=== PATIENT | male | born 1940 | race Caucasian/White ===

== ENCOUNTER 2019-07-14 10:13 | Inpatient (IN) ==
[2019-07-14] MEDS ORDERED: ASPIRIN PO ONE (10:22)
--- NOTE | 2019-07-14 10:35 | EKG Report ---
Test Performed on : 07/14/2019 10:25:20 AM Test Reason : SOB Blood Pressure : / mmHG Vent. Rate : 097 BPM Atrial Rate : 097 BPM P-R Int : 138 ms QRS Dur : 094 ms QT Int : 386 ms P-R-T Axes : 054 -03 065 degrees QTc Int : 490 ms Sinus rhythm. with premature atrial complexes. with aberrant conduction. Otherwise normal ECG When compared with ECG of 20-AUG-2017 11:33, Non-specific change in ST segment in Lateral leads QT has lengthened Unconfirmed Result
--- NOTE | 2019-07-14 11:05 | Diag Imaging Result Doc PS360 ---
EXAM: CHEST-2 VIEWS 07/14/2019 HISTORY: SOB TECHNIQUE: PA and lateral chest COMMENT: There is what appears to be a loculated right pleural effusion. This was not present on 08/20/2017. There is also apparent pleural fluid on the left. There is an old healing fracture of the posterior lateral left seventh rib. The heart size is slightly enlarged. There is atelectasis or pneumonia in the right lower and middle lobes which was not previously present. IMPRESSION: Bilateral pleural effusions. Right lower and middle lobe atelectasis versus pneumonia. Electronically signed by Sarbjit Rogers 07/14/2019 11:03 AM
--- NOTE | 2019-07-14 11:13 | PROVIDER DOCUMENTATION ---
This chart was entered by Olesya Fraga Scribe, acting as scribe for Adelaida Porter MD. HPI-Respiratory General - General Chief Complaint: Shortness of Breath Stated Complaint: DR OTT REFERRED Time Seen by Provider: 07/14/19 10:32 Source: patient, family () Allergies/Adverse Reactions: Patient Allergies Allergy/AdvReac Type Severity Reaction Status Date / Time No Known Allergies Allergy Verified 07/14/19 10:19 Home Medications: Home Medication List Medication Instructions Recorded Confirmed Last Taken Type ATORVAstatin [Lipitor] 20 mg PO DAILY 03/14/14 03/14/14 08/20/17 History Acetaminophen with Codeine 1 each PO Q6H PRN PRN #30 tablet 03/14/14 Unknown Rx [Tylenol with Codeine #3 Tablet] Albuterol Sulfate [Albuterol 8.5 gm IH DAILY 03/14/14 03/14/14 Unknown History Sulfate Hfa] Allopurinol 300 mg PO DAILY 03/14/14 03/14/14 08/20/17 History Baclofen 10 mg PO Q4-6H PRN PRN #30 tablet 03/14/14 Unknown Rx Budesonide [Pulmicort] 0.25 mg INH RTQ12H 03/14/14 03/14/14 Unknown History Diazepam 3 mg PO DAILY 03/14/14 03/14/14 08/20/17 History Finasteride 5 mg PO DAILY 03/14/14 03/14/14 08/20/17 History Gabapentin 300 mg PO DAILY 03/14/14 03/14/14 08/20/17 History Ipratropium 0.06% Nasal [place] 2 spray DREW TID 03/14/14 03/14/14 Unknown History [Atrovent 0.06% Nasal [place]] Lisinopril/Hydrochlorothiazide 20 mg PO DAILY 03/14/14 03/14/14 08/20/17 History [Lisinopril-Hctz 20-12.5 mg Tab] Metformin [Glucophage] 500 mg PO 4XDAY 03/14/14 03/14/14 08/20/17 History Omeprazole 20 mg PO DAILY 03/14/14 03/14/14 08/20/17 History Warfarin [Coumadin] 4.5 mg PO QHS 03/14/14 03/14/14 08/20/17 History Citalopram Hydrobromide 20 mg PO DAILY 08/20/17 08/20/17 08/20/17 History [Citalopram HBr] Tamsulosin HCl 0.4 mg PO BID 08/20/17 08/20/17 08/20/17 History - History of Present Illness-Resp Nature of Presenting Problem: 78 yowm presents to the ed with his from dr Ott office. pt had carotid sx 2 weeks prior and yesterday afternoon pt noticed sob with exertion, mild left anterior chest pain, fever/chills and dizziness. pt on exam is nontoxic in appearance and not currently sob. pt sts was sent to ed due to abnormal chest xray Quality of Pain: reports: aching Severity in ED: reports: mild Onset/Duration: reports: other (yesterday afternoon) Timing: reports: intermittent Exposure: reports: unknown cause Cough Quality/Degree: reports: mild, dry cough Episode Frequency: occasional episodes Current Respiratory Medication Therapy: Initiated see nurses note Modifying Factors: improves with: rest. worse with: exertion Associated Symptoms: reports: chest pain/soreness, cough, dizziness, fever/chills, shortness of breath Similar Symptoms Previously?: No Recently seen or treated by another doctor?: Yes (dr ott this am) Review of Systems - Adult - REVIEW OF SYSTEMS - ADULT Constitutional: reports: see HPI, chills, fever Eyes: reports: no symptoms reported Ears, Nose, Mouth & Throat: reports: no symptoms reported Cardiovascular: reports: see HPI, chest pain, edema (LLE). denies: palpitations, syncope Respiratory: reports: see HPI, cough, dyspnea on exertion, shortness of breath. denies: wheezing Gastrointestinal: denies: abdominal pain, diarrhea, nausea, vomiting Genitourinary: reports: no symptoms reported Musculoskeletal: reports: other (left calf pain). denies: back pain, neck pain Integumentary: reports: no symptoms reported Neurological: reports: see HPI, dizziness/vertigo. denies: headache/migraines, syncope Psychiatric: reports: no symptoms reported Endocrine: reports: no symptoms reported Hematologic/Lymphatic: reports: no symptoms reported Allergic/Immunologic: reports: no symptoms reported All Other Systems: Reviewed and Negative Past History - Adult - PAST MEDICAL HISTORY-ADULT Review of Records: reports: Old Records Reviewed, Nursing Assessment Review, Medications Reviewed, Social history reviewed & non-contributory. Major Childhood Illnesses: reports: denies history Cardiovascular: reports: blood clots (DVT in LLE), HTN, hyperlipidemia Respiratory: reports: asthma Gastrointestinal: reports: denies history Genitourinary: reports: denies history Musculoskeletal: reports: denies history Hand Dominance: Right Handed Neurological: reports: CVA Psychiatric: reports: denies history Endocrine/Immune: reports: Diabetes Diabetes Type: Type 2 Other Conditions: reports: denies history - PRIOR SURGERIES/PROCEDURES Surgical/Procedure History: reports: recent surgery (carotid sx 2 weeks prior), cholecystectomy, hernia repair - IMMUNIZATION STATUS Childhood Immunizations: See Nurse Assessment Flu Vaccine: See Nurse Assessment - FAMILY HISTORY Family History: reviewed, not pertinent - SOCIAL HISTORY Smoking: denies Substance Use: denies Living Situation: family Physical Exam-General - PHYSICAL EXAM-ADULT Initial Vital Signs Reviewed: Yes - CONSTITUTIONAL General Appearance: appears well, alert, no apparent distress, obese - EYES Eyes: PERRL/EOMI, pink conjunctivae - HEAD, EARS, NOSE, MOUTH & THROAT HENMT: moist mucous membranes, normal ENT inspection - NECK Neck: non-tender, full range of motion, supple, normal inspection - RESPIRATORY Respiratory: chest non-tender, lungs clear, normal breath sounds, other (94% on RA/sob with exertion only) - CARDIOVASCULAR Cardiovascular: normal peripheral pulses, regular rate, rhythm - CHEST (BREASTS) Chest/Breast: deferred - GASTROINTESTINAL (ABDOMEN) Abdominal Exam: normal bowel sounds, non tender, soft - LYMPHATIC Lymphatic: no adenopathy - MUSCULOSKELETAL Back Exam: normal inspection, no CVA tenderness, no vertebral tenderness Extremity: normal range of motion, normal capillary refill, pelvis stable, calf tenderness (left), swelling (chronic LLE swelling) - SKIN Integumentary: normal color, normal turgor, warm/dry - NEUROLOGIC Neurologic: grossly normal, no motor/sensory deficits - PSYCHIATRIC Psych/Mental Status: normal mood/affect, normal thought content, normal thought process, oriented x 3 Progress - PLAN OF CARE/RESULTS Progress/Plan/Lab Results: Vital Signs - 8 hr 07/14/19 10:16 Temperature 97.8 F Pulse Rate 95 H Respiratory Rate 20 Blood Pressure 165/80 O2 Sat by Pulse Oximetry 94 L Laboratory Results - last 24 hr 07/14/19 07/14/19 07/14/19 11:19 11:19 11:19 WBC 6.99 RBC 3.29 L Hgb 10.3 L Hct 33.7 L MCV 102.4 H MCH 31.3 H MCHC 30.6 L RDW Std Deviation 13.1 Plt Count 309 MPV 9.8 Immature Gran % (Auto) 0.4 Neut % (Auto) 70.3 Lymph % (Auto) 20.0 L [place] % (Auto) 7.9 Eos % (Auto) 1.1 Baso % (Auto) 0.3 Immature Gran # (Auto) 0.03 Neut # (Auto) 4.91 Lymph # (Auto) 1.40 [place] # (Auto) 0.55 Eos # (Auto) 0.08 Baso # (Auto) 0.02 PT 26.7 H INR 2.39 PTT (Actin FS) 46.9 H D-Dimer, Quantitative 0.57 H Sodium 142 Potassium 3.9 Chloride 104 Carbon Dioxide 27 Anion Gap 11 BUN 10 Creatinine 0.8 Estimated GFR/1.73 m2 > 60 BUN/Creatinine Ratio 13 Glucose 174 H Calculated Osmolality 286 Calcium 8.1 L Total Bilirubin 0.31 AST 17 ALT 15 Alkaline Phosphatase 63 Creatine Kinase 80 Troponin T Ohg-W-Ylqvubusyrt Pept Total Protein 5.9 L Albumin 3.5 Globulin 2.4 Albumin/Globulin Ratio 1.5 07/14/19 07/14/19 11:19 11:19 WBC RBC Hgb Hct MCV MCH MCHC RDW Std Deviation Plt Count MPV Immature Gran % (Auto) Neut % (Auto) Lymph % (Auto) [place] % (Auto) Eos % (Auto) Baso % (Auto) Immature Gran # (Auto) Neut # (Auto) Lymph # (Auto) [place] # (Auto) Eos # (Auto) Baso # (Auto) PT INR PTT (Actin FS) D-Dimer, Quantitative Sodium Potassium Chloride Carbon Dioxide Anion Gap BUN Creatinine Estimated GFR/1.73 m2 BUN/Creatinine Ratio Glucose Calculated Osmolality Calcium Total Bilirubin AST ALT Alkaline Phosphatase Creatine Kinase Troponin T 0.012 Bja-E-Dnvdbuopknv Pept 4349 H Total Protein Albumin Globulin Albumin/Globulin Ratio Orders Category Date Time Status Cardiac Monitoring DIRECTED Care 07/14/19 10:22 Active Oxygen Therapy- ED Nursing DIRECTED Care 07/14/19 10:22 Active Saline Loc NOW Care 07/14/19 10:22 Active CHEST-2 VIEWS [RAD] Stat Exams 07/14/19 10:22 Completed BLOOD CULTURE [BLDCUL] Stat Lab 07/14/19 11:43 Results CBC WITH ELECTRONIC DIFF [HEME] Stat Lab 07/14/19 11:19 Completed CK PROFILE [SP CHEM] Stat Lab 07/14/19 11:19 Completed COMPREHENSIVE METABOLIC PANEL [CHEM] Stat Lab 07/14/19 11:19 Completed D-DIMER [COAG] Stat Lab 07/14/19 11:19 Completed PRO B-NATRIURETIC PEPTIDE Stat Lab 07/14/19 11:19 Completed PROTIME WITH INR [COAG] Stat Lab 07/14/19 11:19 Completed PTT [COAG] Stat Lab 07/14/19 11:19 Completed TROPONIN T Stat Lab 07/14/19 11:19 Completed Albuterol 2.5MG/Ipratrop 0.5MG [Duoneb (A & A)] Med 07/14/19 12:42 Discontinued 3 ml INH NOW ONE Aspirin Med 07/14/19 10:22 Discontinued 325 mg PO NOW ONE Azithromycin 500 mg/Ns [Zithromax 500 mg/Ns] Med 07/14/19 12:42 Active 500 mg in 250 ml IV NOW CefTRIAXONE [Rocephin] 1 gm Med 07/14/19 12:42 Active 0.9% Sodium Chloride Inj [Ns] 50 ml IV NOW Furosemide [Lasix] Med 07/14/19 12:42 Discontinued 40 mg IV NOW ONE Aerosol Treatments Routine Oth 07/14/19 12:44 Completed Aerosol Treatments Stat Oth 07/14/19 12:44 Completed CP/SOB/Palp >45 yrs of Age Stat Oth 07/14/19 10:22 Ordered EKG [EKG] Stat Ther 07/14/19 10:22 Draft US [Venous U/S Left Leg] Stat Ther 07/14/19 12:45 Ordered Result Diagrams: 07/14/19 11:19 07/14/19 11:19 - REASSESSMENT Reassessment #1 Time Reassessed: 11:08 Status: unchanged (pt is in no distress resting in bed) - EKG 1 Time of EKG reading by physician:: 10:25 EKG Read and Signed by:: Adelaida Porter EKG Interpretation (*Must complete 3 of following elements*): Abnormal Rate: 97 Rhythm: sinus rhythm w/ premature atrial complexes w/aberrant conduction QRS: poor R wave progression, PVC's ST Wave: normal - XRAY 1 XRAY: Bilateral XRAY Study: Chest Impression: See EMR Report (EXAM: CHEST-2 VIEWS 07/14/2019 HISTORY: SOB TECHNIQUE: PA and lateral chest COMMENT: There is what appears to be a loculated right pleural effusion. This was not present on 08/20/2017. There is also apparent pleural fluid on the left. There is an old healing fracture of the posterior lateral left seventh rib. The heart size is slightly enlarged. There is atelectasis or pneumonia in the right lower and middle lobes which was not previously present. IMPRESSION: Bilateral pleural effusions. Right lower and m iddle lobe atelectasis versus pneumonia. Electronically signed by Sarbjit Rogers 07/14/2019 11:03 AM 07/14/19 1103 Interpreting Physician: Sarbjit Rogers MD Dictated Date/Time: 07/14/19 1102 cc: Adelaida Porter MD; Sasha Ott MD) - CONSULTS/PCP/HOSPITALIST Notification #1 *Consult/PCP/Hospitalist*: hospitalist Time Discussed: 12:52 Reason/Comments: spoke with zack Consult Disposition: Admit Departure - Departure Date of Disposition Decision: 07/14/19 Time of Disposition Decision: 12:44 DIAGNOSIS: Pneumonia Qualifiers: Pneumonia type: due to unspecified organism Laterality: unspecified laterality Lung location: unspecified part of lung Qualified Code(s): J18.9 - Pneumonia, unspecified organism CHF (congestive heart failure) Qualifiers: Heart failure type: unspecified Heart failure chronicity: unspecified Qualified Code(s): I50.9 - Heart failure, unspecified Dyspnea Qualifiers: Dyspnea type: unspecified Qualified Code(s): R06.00 - Dyspnea, unspecified Chest pain Qualifiers: Chest pain type: chest pain due to myocardial ischemia Ischemic chest pain type: unspecified angina pectoris type Qualified Code(s): I25.9 - Chronic ischemic heart disease, unspecified Disposition: ADMITTED INPATIENT 09 Certified Medical Emergency: Emergent Condition: Stable Referrals and Follow-Ups: Sasha Ott MD [Primary Care Provider] - - Critical Care Note This patient required my direct & personal management of CC.: No Attestation - Physician/ DANELLE Attestation Patient care was provided by Advanced Practice Provider:: No The physician spent face to face time with patient:: Yes Advanced Practice Provider documentation review:: Supervising physician onsite and consulted in the evaluation and care of this patient. The physician did have a face to face encounter with the patient. This chart was documented by the indicated scribe, (Olesya Fraga Scribe) and accurately reflects the services I performed and decisions made by me, Adelaida Porter MD, as attested by the provider's signature.
[2019-07-14 11:35] LABS: BASO# 0.02 X1000 (0.0-0.2); BASO% 0.3 % (0.0-0.8); EOS# 0.08 X1000 (0.0-0.7); EOS% 1.1 % (0.0-10.0); HEMATOCRIT 33.7 % (42.0-52.0); HEMOGLOBIN 10.3 g/dL (14.0-18.0); IMM GRAN# 0.03 X1000 (0.0-0.04); IMM GRAN% 0.4 % (0.0-0.5); MCH 31.3 PG (27-31); MCHC 30.6 g/dL (33-37); MCV 102.4 FL (81-99); MONO# 0.55 X1000 (0.11-0.59); MONO% 7.9 % (1.7-9.3); MPV 9.8 FL (7.4-10.4); NEUT# 4.91 X1000 (1.4-6.5); NEUT% 70.3 % (42.2-75.2); PLT 309 X1000 (130-400); RBC 3.29 XMIL (4.7-6.1); RDW 13.1 % (11.5-14.5); WBC 6.99 X1000 (4.8-10.8)
[2019-07-14 11:39] LABS: INR 2.39; PROTIME 26.7 Seconds (11.0-16.0)
[2019-07-14 11:40] LABS: PTT 46.9 Seconds (22.3-41.8)
[2019-07-14 11:54] LABS: AGAP 11; ALB/GLOB RATIO 1.5; ALBUMIN 3.5 g/dL (3.5-5.0); ALKALINE PHOSPHATASE 63 U/L (32-122); BUN 10 mg/dL (8-22); CALCIUM 8.1 mg/dL (8.8-10.2); CHLORIDE 104 mmol/L (98-107); CK PROFILE 80 U/L (24-204); COSMO 286; CREATININE 0.8 mg/dL (0.7-1.2); ESTIMATED GFR > 60; GLUCOSE 174 mg/dL (70-104); GOT 17 U/L (10-34); GPT 15 U/L (10-44); POTASSIUM 3.9 mmol/L (3.5-5.1); SODIUM 142 mmol/L (136-145); TCO2 27 mmol/L (25-35); TOTAL BILIRUBIN 0.31 mg/dL (0.20-1.00); TOTAL PROTEIN 5.9 g/dL (6.3-8.3)
[2019-07-14] MEDS ORDERED: ROCEPHIN 1 GM in NS 50 ML IV ONE (12:42)
[2019-07-14] MEDS ORDERED: ZITHROMAX 500 MG/NS 500 MG/250 ML IVPB IV ONE (12:42)
[2019-07-14] MEDS ORDERED: LASIX IV ONE (12:42)
[2019-07-14] MEDS ORDERED: DUONEB (A & A) INH ONE (12:42)
[2019-07-14] MEDS ORDERED: PRINIVIL PO ONE (13:25)
--- NOTE | 2019-07-14 15:48 | HISTORY AND PHYSICAL ---
HISTORY OF PRESENT ILLNESS: This is an 78-year-old, white male. He is followed by DR. Lincoln. He has been short of breath for a couple days. Had subjective fever and chills. Feeling a little weak and dizzy. Denies any cough or sore throat. Saw Dr. Lincoln and clinically concerned about pneumonia. Came here. Chest x-ray shows right lower lobe and right middle lobe pneumonia. He had a left carotid endarterectomy 2 weeks ago. PAST MEDICAL HISTORY: 1. History of CVA. I think there were mini-strokes that precipitated a left carotid endarterectomy, mainly right-sided symptomatology. 2. Pneumonia in the past. 3. Kidney stones. 4. Gastroesophageal reflux disease, hiatal hernia. 5. Hypertension. 6. Hypercholesterolemia. 7. Osteoarthritis. 8. Obstructive sleep apnea. 9. UTIs in the past. 10. Diabetes mellitus type 2. 11. Asthma, chronic bronchitis. 12. Peptic ulcer disease. 13. Restless legs syndrome. 14. Benign prostatic hypertrophy. 15. Gout. 16. Rheumatoid arthritis. 17. History of DVTs, on Coumadin. 18. Chronic back pain. 19. Depression. 20. Morbid obesity. 21. Peripheral artery disease, status post left carotid endarterectomy. PAST SURGICAL HISTORY: 1. Two weeks ago, left carotid endarterectomy. 2. Prostate surgery. 3. Hernia repair. 4. Tonsillectomy. ALLERGIES: No known drug allergies. FAMILY HISTORY: History of narcolepsy in his family, history of heart disease. He has a female relative that of heart disease before age 50. Not sure who that was. History of sleep walking in the past in some of his family members. REVIEW OF SYSTEMS: General: No weight gain or loss. Subjective fever in the last couple days and chills, just general weakness and malaise. HEENT: Does not report any change in visual or hearing acuity. Respiratory: No increased work of breathing until 2 days ago. Describes a little more dyspnea with exertion. Cardiovascular: No chest pain or tachy palpitations. Gastrointestinal and Genitourinary: No gross hematuria or dysuria. Musculoskeletal and Neurologic: No focal complaints. Endocrinologic and Hemologic: No significant history. PHYSICAL EXAMINATION: VITAL SIGNS: Temperature 97.8 degrees, pulse 95, blood pressure 165/80. HEENT: Pupils are equal and round. LUNGS: Clear in all lung alonzo. CARDIOVASCULAR EXAMINATION: Regular rhythm and rate without murmur or S3. WEIGHT AND HEIGHT: Weight 240 pounds, height 5 feet 9 inches. SKIN: Warm and dry. I did not appreciate any significant pedal edema. No skin rashes reported or appreciated. Oral and nasal mucosa without rash. NECK: Supple. No thyromegaly, no adenopathy appreciated. LABORATORY DATA: White count 6990, hematocrit is 33, hemoglobin 10, platelet count 309,000. Sodium 142, potassium 3.9, chloride 104, BUN 10, creatinine 0.8. AST was 17, ALT 15, alkaline phosphatase was 63. Prothrombin time was 28, INR 2.39, PTT was 46. D-dimer was 0.57. Chest x- ray, bilateral pleural effusions, right lower and middle lobe atelectasis, infiltrate consistent with pneumonia. ASSESSMENT AND PLAN: 1. Lobar pneumonia, community-acquired. Was recently in the hospital. That was two weeks ago so we will cover him with Rocephin. We will give him 1 g now on one every 24 hours. We will give him some DuoNebs 4 times a day. I am going to put him on some guaifenesin extended release 1200 mg by mouth twice a day and give him some intravenous fluids, supplemental oxygen. 2. History of left carotid endarterectomy two weeks ago. Prior to that, had some small, what he described as mini strokes. He has no neurologic deficits at this time. 3. History of kidney stones in the past. 4. Gastroesophageal reflux disease, hiatal hernia. 5. History of hypertension. 6. Hyperlipidemia. 7. Apparently, he has obstructive sleep apnea. 8. Diabetes mellitus type 2. We will check pattern of sugars. 9. History of asthma and chronic bronchitis. Aware. 10. History of peptic ulcer disease. We will have him on a proton pump inhibitor. 11. Restless legs syndrome. 12. Benign prostatic hypertrophy. 13. History of gout. 14. History of rheumatoid arthritis. 15. Apparently, he has had deep venous thrombosis in the past. I will try and go through his medication and get him back on his usual medicines. 16. He does have chronic lower back pain and so we will try and continue his pain medicine as well. 17. He also has benign prostatic hypertrophy and I believe he was on tamsulosin. 18. It looks like he was on Coumadin 4 mg at bedtime. cc: Alvarado Sheth MD
[2019-07-14] MEDS: DUONEB (A & A) INH SCH ×3 (16:32→23:18)
[2019-07-14] MEDS: HUMULIN R SUBQ SCH ×2 (17:44→21:51)
[2019-07-14] MEDS: NEURONTIN PO SCH (19:22)
[2019-07-14] MEDS ORDERED: LOPRESSOR IV ONE (19:32)
[2019-07-14] MEDS ORDERED: LANOXIN PO ONE (19:33)
[2019-07-14] MEDS: PULMICORT INH SCH (19:48)
--- NOTE | 2019-07-14 20:32 | EKG Report ---
Test Performed on : 07/14/2019 8:19:46 PM Test Reason : afib Blood Pressure : / mmHG Vent. Rate : 082 BPM Atrial Rate : 082 BPM P-R Int : 150 ms QRS Dur : 098 ms QT Int : 416 ms P-R-T Axes : 072 013 056 degrees QTc Int : 486 ms Sinus rhythm. with premature supraventricular complexes. and with occasional premature ventricular co mplexes. and fusion complexes Prolonged QT Abnormal ECG When compared with ECG of 14-JUL-2019 10:25, (Unconfirmed) fusion complexes are now present premature ventricular complexes. are now present Unconfirmed Result
[2019-07-14] MEDS: FLOMAX PO SCH (21:50)
[2019-07-14] MEDS: MUCINEX PO SCH (21:50)
[2019-07-14] MEDS: GLUCOPHAGE PO SCH (21:50)
[2019-07-14] MEDS: LIPITOR PO SCH (21:51)
[2019-07-14] MEDS: COUMADIN PO SCH (21:51)
--- NOTE | 2019-07-14 22:13 | Extremity Venous Study ---
PROCEDURE NAME: Venous U/S Left Leg - 07/14/2019 STUDY: Left lower extremity venous duplex study. REQUEST PHYSICIAN: Dr. Porter. READING PHYSICIAN: David Castaneda MD COMMUNITY BOARD MEMBER: Asael. INDICATION: Shortness of breath, left leg pain. FINDINGS: The deep and superficial veins of the left lower extremity were imaged throughout their course. They are compressible, patent and without thrombus. INTERPRETATION: No deep vein thrombosis or superficial vein thrombophlebitis of either lower extremity. There is reflux in the left mid superficial femoral vein for 2.3 seconds. There is deep vein reflux as well as greater saphenous vein or superficial vein reflux noted on the study. cc: David Castaneda MD
[2019-07-15] MEDS: DUONEB (A & A) INH SCH ×6 (03:26→23:21)
[2019-07-15] MEDS: HUMULIN R SUBQ SCH ×4 (06:20→21:39)
[2019-07-15] MEDS: PRILOSEC PO SCH (06:20)
[2019-07-15 07:27] LABS: INR 2.22; PROTIME 25.2 Seconds (11.0-16.0)
[2019-07-15 07:28] LABS: BASO# 0.02 X1000 (0.0-0.2); BASO% 0.3 % (0.0-0.8); EOS# 0.05 X1000 (0.0-0.7); EOS% 0.7 % (0.0-10.0); HEMOGLOBIN 10.2 g/dL (14.0-18.0); IMM GRAN# 0.02 X1000 (0.0-0.04); IMM GRAN% 0.3 % (0.0-0.5); LYMPH# 0.93 X1000 (1.2-3.4); LYMPH% 13.9 % (20.5-51.1); MCH 30.8 PG (27-31); MCV 102.7 FL (81-99); MONO# 0.43 X1000 (0.11-0.59); MONO% 6.4 % (1.7-9.3); MPV 10.1 FL (7.4-10.4); NEUT# 5.23 X1000 (1.4-6.5); NEUT% 78.4 % (42.2-75.2); PLT 291 X1000 (130-400); RBC 3.31 XMIL (4.7-6.1); RDW 13.1 % (11.5-14.5); WBC 6.68 X1000 (4.8-10.8)
[2019-07-15] MEDS: PULMICORT INH SCH ×2 (07:28→19:31)
[2019-07-15 07:36] LABS: HEMOGLOBIN A1C 7.1 % (4.8-6.0)
[2019-07-15 08:16] LABS: FREE T4 1.06 ng/dL (0.93-1.70); TSH 0.47 uIUmL (0.27-4.20)
[2019-07-15 08:20] LABS: AGAP 12; ALB/GLOB RATIO 1.3; ALBUMIN 3.2 g/dL (3.5-5.0); ALKALINE PHOSPHATASE 62 U/L (32-122); BUN 10 mg/dL (8-22); CALCIUM 8.1 mg/dL (8.8-10.2); CHLORIDE 104 mmol/L (98-107); COSMO 291; CREATININE 0.7 mg/dL (0.7-1.2); ESTIMATED GFR > 60; GLUCOSE 163 mg/dL (70-104); GOT 14 U/L (10-34); GPT 12 U/L (10-44); MAGNESIUM 1.3 mg/dL (1.5-2.7); POTASSIUM 4.1 mmol/L (3.5-5.1); SODIUM 145 mmol/L (136-145); TCO2 29 mmol/L (25-35); TOTAL BILIRUBIN 0.41 mg/dL (0.20-1.00); TOTAL PROTEIN 5.7 g/dL (6.3-8.3)
[2019-07-15] MEDS: ALDACTONE PO SCH (09:17)
[2019-07-15] MEDS: AMARYL PO SCH (09:17)
[2019-07-15] MEDS: CELEXA PO SCH (09:18)
[2019-07-15] MEDS: FLOMAX PO SCH ×2 (09:19→21:39)
[2019-07-15] MEDS: CULTURELLE PO SCH (09:19)
[2019-07-15] MEDS: CENTRUM SILVER PO SCH (09:19)
[2019-07-15] MEDS: GLUCOPHAGE PO SCH ×4 (09:19→21:39)
[2019-07-15] MEDS: MUCINEX PO SCH ×2 (09:20→21:39)
[2019-07-15] MEDS: NEURONTIN PO SCH ×3 (09:20→17:36)
[2019-07-15] MEDS: MAG-OX PO SCH (09:20)
[2019-07-15] MEDS: LASIX PO SCH (09:20)
[2019-07-15] MEDS: PROSCAR PO SCH (09:21)
[2019-07-15] MEDS: ROCEPHIN 1 GM in NS 50 ML IV SCH (09:21)
[2019-07-15] MEDS: ZYLOPRIM PO SCH (09:23)
[2019-07-15] MEDS: VALIUM PO SCH (09:30)
--- NOTE | 2019-07-15 10:03 | PROGRESS NOTE ---
DATE: 07/15/2019 SUBJECTIVE: Mr. Munoz says he is feeling better and monitors suggested he was going into atrial flutter at times. He did have question about his pleural fluid. Apparently a couple years ago he had to have pleural fluid drained and he is not sure why he is getting the fluid collection. OBJECTIVE: Vital signs: Temperature 98.2 degrees, pulse 78, respirations 19, blood pressure 142/79. HEENT: Pupils are equal and round. Lungs: Clear in all lung alonzo. Cardiovascular: Regular rhythm and rate without murmur or S3. Abdomen: Soft. Skin is warm and dry. IMAGING: He had noninvasive studies done of the left leg. There is no deep venous thrombosis or superficial vein thrombosis in either extremity. ASSESSMENT: 1. Lobar pneumonia, middle and right lobe. Continue his Rocephin 1 g q.24 hours, his DuoNeb and supplementary oxygen. I have him on guaifenesin. 2. Left carotid endarterectomy 2 weeks ago. Seems to be healing well. 3. History of kidney stones in the past. 4. Gastroesophageal reflux. 5. History of hypertension. 6. Hyperlipidemia. 7. Apparently chronic obstructive pulmonary disease. 8. Diabetes mellitus type 2. Continue to follow pattern sugars. 9. History of asthma, chronic bronchitis. 10. History of peptic ulcer disease. 11. Restless legs syndrome. 12. History of gout. 13. History of rheumatoid arthritis. PLAN: His x-ray yesterday, bilateral pleural effusions, right lower and middle lobe atelectasis versus pneumonia. I am going to ask Pulmonary to help us with evaluation of these pleural effusions and we will check the EKG this morning. EKG shows sinus rhythm, but there were reports of some atrial flutter and may be worth getting an echocardiogram as well just to look at left ventricular function. I see where he has had a myocardial perfusion scan in February 2018, he had a fixed defect in the inferior lateral wall suggestive infarct or scar. This is a fixed defect in the inferior apical wall and there is reversible perfusion defect in the distal anterior septal wall suggestive of of infarct ischemia. Left ventricular ejection fraction was 43%. I will ask Cardiology to see as well while he is here cc: MD KRISTIN Perry
--- NOTE | 2019-07-15 10:15 | Diag Imaging Result Doc PS360 ---
EXAM: CHEST-2 VIEWS 07/15/2019 HISTORY: Pneumonia TECHNIQUE: PA and lateral chest COMMENT: There is pleural thickening and/or loculated effusion on the right. There is ill-defined opacity in the lung bases particularly on the right. This has not changed since 07/14/2019. These findings were not present on 08/20/2017. IMPRESSION: Pleural effusions and/or pleural thickening. Pulmonary edema and/or pneumonia. Electronically signed by Sarbjit Rogers 07/15/2019 10:13 AM
--- NOTE | 2019-07-15 13:43 | ECHO REPORT ---
ORDER DATE: 07/14/2019 2D ECHOCARDIOGRAM: ECHOCARDIOGRAPHIC MEASUREMENTS: 1. Interventricular septum 1.2. 2. Left ventricular posterior wall 1.1. 3. Diastolic diameter 5.0. 4. Left atrium 5.6. 5. Aorta 4. FINDINGS: 1. Pulmonic valve was normal. 2. Aortic valve leaflets were calcified, trileaflet. Technically suboptimal study. Poor acoustic window. 3. Mitral valve was normal. 4. There is moderate mitral annular calcification. 5. There is left atrial enlargement. 6. Atrial fibrillation noted. 7. There is mild mitral regurgitation. 8. Mild tricuspid regurgitation. 9. Peak velocity across the tricuspid valve was 3.4 m/sec. 10. Pulmonary artery systolic pressure 57 mmHg. 11. Peak velocity across the aortic valve was 4 m/sec with a maximum gradient of 66 mmHg, mean gradient of 45 mmHg, aortic valve area of 1.2 cm2. There is moderate to severe aortic stenosis. There is no aortic regurgitation. 12. Optison was used to assess left ventricular systolic function. Normal left ventricular cavity size. 13. Estimated ejection fraction of 60%. 14. There is no pericardial effusion or obvious intracardiac mass or thrombus. cc: MD Aspen Garcia CRNP
[2019-07-15] MEDS: LASIX IV SCH ×2 (13:59→21:40)
[2019-07-15] MEDS ORDERED: MAGNESIUM SULFATE 4 GM/S.W.I. 4 GM/100 ML IVPB IV ONE (14:04)
[2019-07-15] MEDS: LOPRESSOR PO SCH (14:04)
[2019-07-15] MEDS: FLONASE NAS SCH (14:05)
--- NOTE | 2019-07-15 14:44 | CARDIOLOGY CONSULTATION ---
DATE: 07/15/2019 REASON FOR CONSULTATION: The patient is admitted with shortness of breath and pneumonia. HISTORY OF PRESENT ILLNESS: Mr. Munoz is an 78-year-old gentleman who underwent carotid endarterectomy at [facility] on 06/29/2019 and was discharged home on 07/01/2019, where he was admitted for left carotid endarterectomy. The patient states that in the hospital when he was there he also had some nausea and vomiting. He came home, subsequently he noticed a few days of shortness of breath without any subjective chills, may have had some low-grade temperature. He felt weak and has sudden onset shortness of breath. He came to the emergency room, chest x-ray revealed right lower lobe and middle lobe pneumonia with effusion. The patient was admitted and started on antibiotics. From a cardiac standpoint, denies chest pain. There is no history of any palpitations or syncope. PAST MEDICAL HISTORY: 1. The patient has moderate aortic stenosis, left heart catheterization in 2014 and 2017. The one in 2018 revealed mild pulmonary arterial hypertension with normal left ventricular end- diastolic pressure, essentially normal coronary arteries, no significant blockages other than minimal luminal irregularities. The aortic valve area was 1.4 cm2, consistent with moderate aortic stenosis, with preserved left ventricular systolic function, ejection fraction of 55%. 2. History of asthma. 3. History of shortness of breath. Underwent paracentesis on 03/19/2018 at [place], at that time he had right middle and lower lobe nodular opacities, and underwent thoracentesis. 4. History of hypertension. 5. 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 HOME MEDICATIONS: Include 1. Allopurinol 300 mg a day. 2. Atorvastatin 20. 3. Celexa 20. 4. Diazepam 2 mg at bedtime. 5. Finasteride 5 mg. 6. Fluticasone. 7. Gabapentin. 8. Glimepiride 1 mg. 9. Lisinopril 20 mg. 10. Metformin 1000 mg b.i.d. 11. Multivitamins. 12. Omeprazole 20. 13. Spironolactone 25. 14. Coumadin as directed. ALLERGIES: He is not known to be allergic to any medication. CURRENT MEDICATIONS: In the hospital his current medications also include ceftriaxone, and Lasix was given intravenously. He also takes Amaryl 1 mg in addition to subcu insulin as needed. PHYSICAL EXAMINATION: Blood pressure was 142/79, ejection systolic murmur heard.Respiratory: Had dullness at the base with inspiratory crepitations on the right side. Abdomen: Soft, nontender. There was no guarding or rigidity. Bowel sounds were heard. Central Nervous System: Alert and was moving all 4 extremities. LABORATORY DATA: Revealed a sodium of 147, potassium 4.1, BUN 10, creatinine 0.7, glucose 163. ProBNP elevated at 5000, magnesium 1.3, TSH 0.47. CBC: WBC was 6.68, hemoglobin 10.2,hematocrit 34, platelet count of 291,000. Coagulation: INR 2.39 and 2.22. ASSESSMENT AND PLAN: 1. Mr. Beau Munoz is an 78-year-old gentleman with a history of insignificant coronary artery disease, moderate aortic stenosis, has had CVA in the past, on anticoagulation therapy for recurrent DVTs, underwent carotid endarterectomy in June of 2019. While in the hospital the patient states that he had significant nausea and projectile vomiting. He was discharged home, is admitted with sudden onset of increasing shortness of breath. Chest x-ray is suggestive of pneumonia with pleural effusion. From a cardiac standpoint he has gone into atrial fibrillation, and this is new and we will put him on Lopressor 50 mg a day. 2. He is also anticoagulated given his recurrent DVT. His INR is therapeutic. 3. His echocardiogram revealed preserved left ventricular systolic function with moderate to severe aortic stenosis, the last cardiac catheterization in 2018 revealed aortic valve area of 1.8 cm2, with moderate aortic stenosis. 4. As far as his pneumonia is concerned, in the past he has had thoracentesis in 2018, with lower lobe, right and middle lobe ground-glass opacities noted. We will get a CT scan of his chest to evaluate the lung as well as the effusion. Pulmonology has been consulted. He has been given Lasix. Thank you for the consult. We will follow hospital course. cc: Jarod Ramirez MD
--- NOTE | 2019-07-15 15:46 | Diag Imaging Result Doc PS360 ---
CT THORAX W/WO CONTRAST - 07/15/2019 INDICATION: Dyspnea, pneumonia, effusions COMPARISON: Chest x-ray earlier 07/15/2019 FINDINGS: On the noncontrast exam, there is some density within the lung at the posterior lateral lung bases bilaterally. This likely indicates calcified pleural plaques. On the contrast-enhanced exam, there is cardiomegaly. There are significant coarse densities of the aortic valve. This suggests significant vascular calcification. This may indicate aortic stenosis. There is also scattered focal calcified coronary artery disease. No adenopathy. Upper abdominal images are unremarkable. There is a small left pleural effusion. There is some multifocal atelectasis/fibrosis in the lung bases. There are also patchy infiltrates in the right upper lobe compatible with pneumonia. There is vertebroplasty cement in the lower thoracic spine. No acute bony lesions. IMPRESSION: 1. Cardiomegaly. Bibasilar infiltrates that are nonspecific, suggesting scarring. 2. Patchy infiltrates in the right upper lobe concerning for pneumonia. 3. Trace left pleural effusion. This exam was performed using automated exposure control, adjustment of mA or kV according to patient size, and/or use of iterative reconstruction technique Electronically signed by Fan Hercules 07/15/2019 3:44 PM
[2019-07-15] MEDS: COUMADIN PO SCH (21:38)
[2019-07-15] MEDS: LIPITOR PO SCH (21:39)
--- NOTE | 2019-07-16 01:04 | PULMONOLOGY CONSULTATION ---
DATE: 07/15/2019 REASON FOR CONSULTATION: Evaluate and treat with pleural effusions. HISTORY OF PRESENT ILLNESS: Mr. Munoz is an 78-year-old white male, never smoker, who recently underwent a carotid endarterectomy for what he describes as an 80% stenosis of the left carotid artery. The patient has had a history of minor strokes with residual numbness in the left leg. The patient has developed increased shortness of breath with some cough and subjective fevers over the last several days. He was evaluated by Dr. Lincoln and chest x-ray suggested right middle and right lower lobectomy, which was not present 2 years ago. The patient does report that 1 year ago he was admitted to [facility] and had fluid drawn off his right lung. He also had a cardiac catheterization at that time and reports he did not have significant blockages. This information has been requested. PAST MEDICAL HISTORY: 1. History of prior pleural effusion as per above. 2. Hypertension. 3. History of stroke with minor residual infiltrates. 4. Gastroesophageal reflux with mild hiatal hernia by report. 5. Recurrent deep vein thrombosis, on anticoagulation. 6. Chronic back pain. 7. History of rheumatoid arthritis. 8. BPH. 9. Left leg syndrome. 10. Chronic bronchitis. 11. History of UTIs. 12. Obstructive sleep apnea, on CPAP device. 13. Dyslipidemia. 14. Nephrolithiasis. 15. Prior history of pneumonia. SOCIAL HISTORY: The patient denies prior tobacco use. No significant alcohol use. Work history was not obtained but will be obtained at the next visit. FAMILY HISTORY: Positive for heart disease, narcolepsy. REVIEW OF SYSTEMS: Notable for cough, fevers, chills, shortness of breath, increased lower extremity edema. PHYSICAL EXAMINATION: General: Reveals a well-developed, well-nourished male who appears younger than his stated age, in no acute distress. Vital signs: BP 142/79, heart rate 78, respiratory rate 19, oxygen saturation 94% on 3 L per nasal cannula. HEENT: Pupils are equal and reactive. Oropharynx is clear. Neck: Supple. Chest: Reveals decreased breath sounds both lung bases with bilateral crackles. Cardiac: S1, S2. Slightly irregular rhythm. Abdomen: Soft. Extremities: Reveal 1+ ankle edema. LABORATORIES: Chest x-ray as per HPI. ProBNP is elevated at 5001. IMPRESSION: An 78-year-old with prior history of pleural effusion status post thoracentesis, history of rheumatoid arthritis, recent carotid endarterectomy, who presents with subjective fevers, pleural effusion, pneumonia, increased peripheral edema, and hypoxemic respiratory failure. PLAN: 1. Attempt diuresis today with followup chest x-ray tomorrow. 2. Continue current antibiotics pending blood culture results. 3. Obtain previous workup from [facility] concerning thoracentesis and its results. 4. Review CT scan ordered by Cardiology. cc: Lui Bell MD
[2019-07-16] MEDS: DUONEB (A & A) INH SCH ×6 (03:33→23:08)
[2019-07-16] MEDS: HUMULIN R SUBQ SCH ×4 (06:32→20:18)
[2019-07-16] MEDS: PRILOSEC PO SCH (06:33)
[2019-07-16 06:59] LABS: BASO# 0.01 X1000 (0.0-0.2); BASO% 0.1 % (0.0-0.8); EOS# 0.16 X1000 (0.0-0.7); EOS% 2.3 % (0.0-10.0); HEMATOCRIT 35.6 % (42.0-52.0); IMM GRAN# 0.03 X1000 (0.0-0.04); IMM GRAN% 0.4 % (0.0-0.5); LYMPH# 1.55 X1000 (1.2-3.4); MCH 31.8 PG (27-31); MCHC 30.9 g/dL (33-37); MCV 102.9 FL (81-99); MONO# 0.67 X1000 (0.11-0.59); MONO% 9.5 % (1.7-9.3); NEUT# 4.63 X1000 (1.4-6.5); NEUT% 65.7 % (42.2-75.2); PLT 290 X1000 (130-400); RBC 3.46 XMIL (4.7-6.1); RDW 13.3 % (11.5-14.5); WBC 7.05 X1000 (4.8-10.8)
[2019-07-16 07:09] LABS: INR 2.03; PROTIME 23.5 Seconds (11.0-16.0)
[2019-07-16 07:23] LABS: AGAP 14; ALBUMIN 3.1 g/dL (3.5-5.0); ALKALINE PHOSPHATASE 65 U/L (32-122); BUN 16 mg/dL (8-22); CALCIUM 8.2 mg/dL (8.8-10.2); CHLORIDE 98 mmol/L (98-107); COSMO 281; CREATININE 0.9 mg/dL (0.7-1.2); ESTIMATED GFR > 60; GLUCOSE 132 mg/dL (70-104); GOT 18 U/L (10-34); GPT 12 U/L (10-44); MAGNESIUM 1.7 mg/dL (1.5-2.7); SODIUM 139 mmol/L (136-145); TCO2 27 mmol/L (25-35); TOTAL BILIRUBIN 0.38 mg/dL (0.20-1.00); TOTAL PROTEIN 6.2 g/dL (6.3-8.3)
[2019-07-16] MEDS: PULMICORT INH SCH ×2 (07:58→19:30)
[2019-07-16] MEDS: FLONASE NAS SCH (08:24)
[2019-07-16] MEDS: ROCEPHIN 1 GM in NS 50 ML IV SCH (08:25)
[2019-07-16] MEDS: CENTRUM SILVER PO SCH (08:26)
[2019-07-16] MEDS: MUCINEX PO SCH ×2 (08:26→20:18)
[2019-07-16] MEDS: PROSCAR PO SCH (08:26)
[2019-07-16] MEDS: CULTURELLE PO SCH (08:26)
[2019-07-16] MEDS: ALDACTONE PO SCH (08:26)
[2019-07-16] MEDS: LASIX PO SCH (08:26)
[2019-07-16] MEDS: CELEXA PO SCH (08:26)
[2019-07-16] MEDS: MAG-OX PO SCH (08:26)
[2019-07-16] MEDS: NEURONTIN PO SCH ×3 (08:26→17:12)
[2019-07-16] MEDS: AMARYL PO SCH (08:26)
[2019-07-16] MEDS: GLUCOPHAGE PO SCH ×4 (08:27→20:18)
[2019-07-16] MEDS: ZYLOPRIM PO SCH (08:27)
[2019-07-16] MEDS: LOPRESSOR PO SCH (08:27)
[2019-07-16] MEDS: FLOMAX PO SCH ×2 (08:27→20:18)
[2019-07-16] MEDS: VALIUM PO SCH (08:33)
--- NOTE | 2019-07-16 09:33 | Diag Imaging Result Doc PS360 ---
EXAM: CHEST-2 VIEWS HISTORY: abnormal exam TECHNIQUE: Two views COMPARISON: 07/15/2019 FINDINGS: Poor inspiratory effort. The heart is mildly enlarged. There are small pleural effusions with basilar atelectasis. Right upper lobe infiltrates are less pronounced. IMPRESSION: Mild interval improvement. Electronically signed by Ralph Warren 07/16/2019 9:30 AM
--- NOTE | 2019-07-16 12:54 | PROGRESS NOTE ---
DATE: 07/16/2019 Mr Munoz is breathing better. He is feeling better. Remains afebrile. Sitting up, just finished his breakfast. OBJECTIVE: Vital Signs: Temp 98.2 degrees, pulse 60, respirations 18, blood pressure 100/47. HEENT: Pupils are equal and round. Lungs: Are clear in all lung alonzo. Cardiovascular: Regular rhythm and rate without murmur or S3. Abdomen: Is soft. Skin: Warm and dry. Blood sugar 103, 162, 208. ASSESSMENT AND PLAN: 1. History of insignificant coronary artery disease, moderate aortic stenosis. He has had a CVA in the past, on anticoagulation for history of DVT, underwent carotid endarterectomy in June 2019, just this last month. He had sudden increase in shortness of breath. Chest x- ray suggestive of pneumonia and pleural effusion. 2. Continue anticoagulation with history of DVT. INR therapeutic. 3. Echocardiogram revealed preserved left ventricular function. Last heart catheterization 2017 revealed aortic valve area of 1.8 cm2, moderate aortic stenosis. 4. Continue present antibiotics. He had a thoracentesis in 2018 with lower lobe right middle lobe ground-glass opacities noted. CT scan of the chest is planned to evaluate the fusion. He continues present Lasix. 5. There was a report that he was going into atrial flutter. I do not see any strips to confirm that. cc: Alvarado Sheth MD
[2019-07-16] MEDS ORDERED: MILK OF MAGNESIA PO PRN (13:30)
[2019-07-16] MEDS ORDERED: DULCOLAX PO PRN (13:30)
[2019-07-16] MEDS: MIRALAX PO SCH (13:49)
--- NOTE | 2019-07-16 17:37 | EKG Report ---
Test Performed on : 07/16/2019 06:44:22 AM Test Reason : afib Blood Pressure : / mmHG Vent. Rate : 089 BPM Atrial Rate : 089 BPM P-R Int : 178 ms QRS Dur : 100 ms QT Int : 440 ms P-R-T Axes : 081 012 059 degrees QTc Int : 535 ms Sinus rhythm. with premature atrial complexes. Prolonged QT Abnormal ECG When compared with ECG of 14-JUL-2019 20:19, (Unconfirmed) fusion complexes are no longer present premature ventricular complexes. are no longer present Unconfirmed Result
[2019-07-16] MEDS: COUMADIN PO SCH (20:18)
[2019-07-16] MEDS: LIPITOR PO SCH (20:18)
--- NOTE | 2019-07-16 20:23 | CARDIOLOGY PROGRESS NOTE ---
DATE: 07/16/2019 SUBJECTIVE: Patient denies shortness of breath or chest discomfort. He reports feeling progressively better. He has spontaneously converted back to sinus rhythm. OBJECTIVE: Blood pressure 109/64, heart rate 62, with ECG monitor showing sinus rhythm. Oxygen saturation 94% on room air. There is no significant jugular venous distention.Chest: Clear to auscultation bilaterally. Cardiac: Regular rate and rhythm without appreciable murmur or gallop. There is mild pedal edema. LABORATORY DATA: Includes a white blood cell count of 7.05, hematocrit 35.6, hemoglobin 11.0, platelet count 290,000. Sodium 139, potassium 4.0, chloride 98, carbon dioxide 27, BUN 16, creatinine 0.9, glucose 132. IMPRESSION: 1. Recent atrial fibrillation in the setting of acute noncardiac illness. Patient has spontaneously converted back to sinus rhythm. 2. Pneumonia. 3. Previous deep vein thrombosis. Patient continues on anticoagulation. 4. Atherosclerotic coronary disease, mild. 5. Moderate aortic stenosis. 6. History of previous cerebrovascular accident. RECOMMENDATIONS: 1. Continue metoprolol for rate control should he go back in to atrial fibrillation. 2. Patient already anticoagulated given recurrent DVT. Recent INR therapeutic. cc: Blayne Main MD
--- NOTE | 2019-07-16 21:57 | PULMONOLOGY PROGRESS NOTE ---
DATE: 07/16/2019 SUBJECTIVE: The patient is awake, alert, and conversant. He reports he feels better. Intake, output not able to assess because urine output has not been measured. OBJECTIVE: Vital Signs: BP 100/47, heart rate 60, respiratory rate 18, oxygen saturation 97%. HEENT: Pupils are equal and reactive. Oropharynx appears clear. Neck: Supple. Chest: Reveals diminished breath sounds both lung bases. Cardiac: S1-S2. Abdomen: Obese and soft. Extremities: Reveal slight decreased peripheral edema. LABORATORIES: CT scan of the thorax 07/15/2019 is reviewed. Patient has some areas of consolidation in both lung bases with increased densities which may be calcified pleural plaques but the patient denies asbestos. He denies ingestion of calcium carbonate. He denies ingestion of mineral oil. He denies asbestos or occupational exposures. He denies history of tuberculosis exposure. The CT scan also reveals cardiomegaly with trace left-sided pleural effusion. IMPRESSION: 78-year-old with 1. Acute hypoxemic respiratory failure. 2. Small left-sided pleural effusion. 3. History of rheumatoid arthritis. 4. Status post carotid endarterectomy. 5. Peripheral edema. 6. Acute hypoxemic respiratory failure. 7. Status post thoracentesis at [facility]. The records still are not yet available for review. PLAN: 1. Increase oral Lasix dose but no additional IV dosing today. 2. Continue current antibiotic regimen. 3. Await [facility] records for review of prior thoracentesis. cc: Lui Bell MD
[2019-07-17] MEDS: DUONEB (A & A) INH SCH ×5 (03:28→20:02)
[2019-07-17] MEDS: HUMULIN R SUBQ SCH ×4 (06:12→20:37)
[2019-07-17] MEDS: PRILOSEC PO SCH (06:17)
[2019-07-17 07:28] LABS: BASO# 0.02 X1000 (0.0-0.2); BASO% 0.3 % (0.0-0.8); EOS# 0.13 X1000 (0.0-0.7); HEMATOCRIT 34.4 % (42.0-52.0); HEMOGLOBIN 10.5 g/dL (14.0-18.0); IMM GRAN# 0.03 X1000 (0.0-0.04); IMM GRAN% 0.5 % (0.0-0.5); LYMPH# 1.33 X1000 (1.2-3.4); LYMPH% 20.3 % (20.5-51.1); MCH 31.4 PG (27-31); MCHC 30.5 g/dL (33-37); MONO# 0.44 X1000 (0.11-0.59); MONO% 6.7 % (1.7-9.3); NEUT% 70.2 % (42.2-75.2); PLT 294 X1000 (130-400); RBC 3.34 XMIL (4.7-6.1); RDW 13.3 % (11.5-14.5); WBC 6.55 X1000 (4.8-10.8)
[2019-07-17 07:29] LABS: INR 1.91; PROTIME 22.3 Seconds (11.0-16.0)
[2019-07-17] MEDS: PULMICORT INH SCH ×2 (07:44→20:02)
[2019-07-17 07:48] LABS: ESTIMATED GFR > 60
[2019-07-17] MEDS: MIRALAX PO SCH (08:26)
[2019-07-17] MEDS: NEURONTIN PO SCH ×3 (08:27→16:01)
[2019-07-17] MEDS: ROCEPHIN 1 GM in NS 50 ML IV SCH (08:27)
[2019-07-17] MEDS: ZYLOPRIM PO SCH (08:28)
[2019-07-17] MEDS: ALDACTONE PO SCH (08:28)
[2019-07-17] MEDS: LASIX PO SCH (08:28)
[2019-07-17] MEDS: CULTURELLE PO SCH (08:28)
[2019-07-17] MEDS: MUCINEX PO SCH ×2 (08:28→20:35)
[2019-07-17] MEDS: GLUCOPHAGE PO SCH ×4 (08:28→20:35)
[2019-07-17] MEDS: CELEXA PO SCH (08:28)
[2019-07-17] MEDS: MAG-OX PO SCH (08:29)
[2019-07-17] MEDS: CENTRUM SILVER PO SCH (08:29)
[2019-07-17] MEDS: AMARYL PO SCH (08:29)
[2019-07-17] MEDS: FLOMAX PO SCH ×2 (08:29→20:35)
[2019-07-17] MEDS: PROSCAR PO SCH (08:29)
[2019-07-17] MEDS: LOPRESSOR PO SCH (08:29)
[2019-07-17] MEDS: FLONASE NAS SCH (08:30)
[2019-07-17 08:46] LABS: AGAP 12; ALB/GLOB RATIO 1.2; ALBUMIN 3.3 g/dL (3.5-5.0); ALKALINE PHOSPHATASE 60 U/L (32-122); BUN 21 mg/dL (8-22); CALCIUM 9.1 mg/dL (8.8-10.2); CHLORIDE 98 mmol/L (98-107); COSMO 281; GLUCOSE 144 mg/dL (70-104); GOT 17 U/L (10-34); GPT 12 U/L (10-44); MAGNESIUM 1.9 mg/dL (1.5-2.7); POTASSIUM 4.3 mmol/L (3.5-5.1); SODIUM 138 mmol/L (136-145); TCO2 28 mmol/L (25-35); TOTAL BILIRUBIN 0.33 mg/dL (0.20-1.00); TOTAL PROTEIN 6.1 g/dL (6.3-8.3)
[2019-07-17] MEDS: VALIUM PO SCH (08:46)
--- NOTE | 2019-07-17 13:18 | PROGRESS NOTE ---
DATE: 07/17/2019 SUBJECTIVE: Mr. Munoz is feeling better, breathing better. OBJECTIVE: Vital Signs: He remains afebrile, temperature 97.5 degrees, pulse 111, respirations 18, blood pressure 134/60. HEENT: Pupils are equal and round. Lungs: Clear in all lung alonzo. Cardiovascular: Regular rhythm and rate without murmur or S3. He is feeling better. ASSESSMENT AND PLAN: Acute hypoxemic respiratory failure, small left-sided pleural effusion, history of rheumatic arthritis, status post carotid endarterectomy a couple weeks ago, some peripheral edema. He is status post thoracentesis in [facility]. I think this was a couple years ago, so encouraged him to wear his continuous positive airway pressure, and I encouraged some weight reduction. Continue present antibiotic coverage. Dr. Bell is awaiting results from [facility] and thoracentesis. REVIEW OF ORDERS: I do not see any change. I suspect he will be able to go home tomorrow. He is on his Coumadin 4 mg a day, and his ProTime is 22, which is therapeutic. His INR is 1.9. cc: Alvarado Sheth MD
[2019-07-17] MEDS: TYLENOL PO PRN (14:15)
[2019-07-17] MEDS: LIPITOR PO SCH (20:35)
[2019-07-17] MEDS: COUMADIN PO SCH (20:35)
[2019-07-18] MEDS: DUONEB (A & A) INH SCH ×5 (00:07→15:46)
[2019-07-18] MEDS: HUMULIN R SUBQ SCH ×3 (06:13→16:06)
[2019-07-18] MEDS: PRILOSEC PO SCH (06:28)
[2019-07-18] MEDS: PULMICORT INH SCH (07:39)
[2019-07-18 07:42] LABS: BASO# 0.02 X1000 (0.0-0.2); BASO% 0.3 % (0.0-0.8); EOS# 0.15 X1000 (0.0-0.7); EOS% 2.3 % (0.0-10.0); HEMATOCRIT 34.9 % (42.0-52.0); HEMOGLOBIN 10.6 g/dL (14.0-18.0); IMM GRAN# 0.02 X1000 (0.0-0.04); IMM GRAN% 0.3 % (0.0-0.5); LYMPH# 1.14 X1000 (1.2-3.4); LYMPH% 17.8 % (20.5-51.1); MCH 31.2 PG (27-31); MCHC 30.4 g/dL (33-37); MCV 102.6 FL (81-99); MONO# 0.42 X1000 (0.11-0.59); MONO% 6.5 % (1.7-9.3); NEUT# 4.67 X1000 (1.4-6.5); NEUT% 72.8 % (42.2-75.2); PLT 295 X1000 (130-400); RDW 13.2 % (11.5-14.5); WBC 6.42 X1000 (4.8-10.8)
[2019-07-18] MEDS ORDERED: NS 50 ML ONE (07:46)
[2019-07-18 07:54] LABS: INR 1.76; PROTIME 20.9 Seconds (11.0-16.0)
[2019-07-18 08:30] LABS: AGAP 12; ALB/GLOB RATIO 1.3; ALBUMIN 3.5 g/dL (3.5-5.0); ALKALINE PHOSPHATASE 61 U/L (32-122); BUN 20 mg/dL (8-22); CALCIUM 8.9 mg/dL (8.8-10.2); CHLORIDE 99 mmol/L (98-107); COSMO 283; CREATININE 1.1 mg/dL (0.7-1.2); ESTIMATED GFR > 60; GLUCOSE 141 mg/dL (70-104); GOT 16 U/L (10-34); GPT 12 U/L (10-44); MAGNESIUM 1.7 mg/dL (1.5-2.7); SODIUM 139 mmol/L (136-145); TCO2 28 mmol/L (25-35); TOTAL BILIRUBIN 0.31 mg/dL (0.20-1.00); TOTAL PROTEIN 6.3 g/dL (6.3-8.3)
[2019-07-18] MEDS: FLONASE NAS SCH (09:03)
[2019-07-18] MEDS: ROCEPHIN 1 GM in NS 50 ML IV SCH (09:03)
[2019-07-18] MEDS: MIRALAX PO SCH (09:03)
[2019-07-18] MEDS: AMARYL PO SCH (09:04)
[2019-07-18] MEDS: ZYLOPRIM PO SCH (09:04)
[2019-07-18] MEDS: MAG-OX PO SCH (09:05)
[2019-07-18] MEDS: PROSCAR PO SCH (09:05)
[2019-07-18] MEDS: MUCINEX PO SCH (09:05)
[2019-07-18] MEDS: NEURONTIN PO SCH ×3 (09:05→18:22)
[2019-07-18] MEDS: CELEXA PO SCH (09:05)
[2019-07-18] MEDS: CENTRUM SILVER PO SCH (09:05)
[2019-07-18] MEDS: FLOMAX PO SCH (09:05)
[2019-07-18] MEDS: CULTURELLE PO SCH (09:05)
[2019-07-18] MEDS: ALDACTONE PO SCH (09:05)
[2019-07-18] MEDS: LOPRESSOR PO SCH (09:06)
[2019-07-18] MEDS: LASIX PO SCH (09:06)
[2019-07-18] MEDS: VALIUM PO SCH (09:06)
[2019-07-18] MEDS: GLUCOPHAGE PO SCH ×3 (09:06→18:22)
[2019-07-18] MEDS: TYLENOL PO PRN (14:22)
[2019-07-18 16:13] VITALS: BP 120/66
--- NOTE | 2019-07-18 17:24 | DISCHARGE SUMMARY ---
ADMISSION DATE: 07/14/2019 DISCHARGE DATE: 07/18/2019 HISTORY OF PRESENT ILLNESS: This is an 78-year-old followed by Dr. Lincoln. He had been short of breath for a couple days, had subjective fever and chills, feels a little bit weak and dizzy, denies any cough or sore throat. Dr. Lincoln was concerned about pneumonia. He came in. Chest x- ray showed right lower lobe and right middle lobe pneumonia. He has had a left carotid endarterectomy only about 2 weeks ago. PAST MEDICAL HISTORY: 1. History of CVA. I think they were mini-strokes that precipitated a left carotid endarterectomy, mainly right-sided symptomatology. 2. Pneumonia in the past. 3. Kidney stones. 4. Gastroesophageal reflux disease with hiatal hernia. 5. Hypertension. 6. Hypercholesterolemia. 7. Osteoarthritis. 8. Obstructive sleep apnea. 9. UTIs in the past. 10. Diabetes mellitus type 2. 11. Asthma and chronic bronchitis. 12. Peptic ulcer disease. 13. Restless legs syndrome. 14. Benign prostatic hypertrophy. 15. Gout. 16. Rheumatoid arthritis. 17. History of DVTs. He is on Coumadin. 18. Chronic back pain. 19. Depression. 20. Morbid obesity. 21. Peripheral artery disease, status post left carotid endarterectomy. PAST SURGICAL HISTORY: 1. Two weeks ago had left carotid endarterectomy. 2. Prostate surgery. 3. Hiatal hernia repair. 4. Tonsillectomy. ADMISSION DIAGNOSES: 1. Lobar pneumonia, recently in the hospital 2 weeks ago for carotid endarterectomy. We started him on Rocephin and DuoNebs and supplementary oxygen and some guaifenesin. He showed persistent improvement. There was a little bit of pleural fluid, so I did ask Dr. Bell to see. Apparently a couple years ago he had a thoracentesis for pleural fluid. I do not know the results of that. He does not seem to know either. He has never had any real history of intrinsic lung disease. He does have a history of rheumatoid arthritis. 2. Recent left carotid endarterectomy 2 weeks ago. Seems to be recovering well. He has not had any new neurologic changes. 3. History of kidney stones in the past. 4. Gastroesophageal reflux disease, hiatal hernia. 5. History of hypertension. 6. Hyperlipidemia. 7. He has a history of obstructive sleep apnea. 8. Diabetes mellitus type 2. 9. History of asthma and chronic bronchitis. 10. History of peptic ulcer disease. 11. Restless legs syndrome. 12. Benign prostatic hypertrophy. 13. History of gout. 14. History of rheumatoid arthritis. 15. He has had deep venous thrombosis in the past, and he takes anticoagulant for that. 16. Chronic lower back pain for which he takes pain medications. 17. History of benign prostatic hypertrophy. Note that his ProTime was therapeutic, INR was 2.39, and PT was 26.7. On the day of discharge, PT was 20 and INR was 1.76. I asked Dr. Bell to see. We did lower extremity venous studies and no deep venous thrombosis or superficial vein thrombophlebitis in either lower extremity. There was some reflux in the left mid superficial femoral for about 2.3 seconds, and there is deep venous reflux as well in the greater saphenous vein, and superficial vein reflux noted on the study. He had a CT of the chest done with and without contrast. He has cardiomegaly, bibasilar infiltrates that are nonspecific suggesting some scarring, patchy infiltrate in the right upper lobe concerning for pneumonia and trace left pleural effusion. Cardiology was asked to see. He had an episode of atrial fibrillation. The patient with a history of insignificant coronary artery disease, moderate aortic stenosis had a CVA in the past on anticoagulation for recent DVT, underwent carotid endarterectomy in June 2019. While in the hospital, he had some significant nausea and projectile vomiting, and he was discharged home. He admitted he had a sudden onset of shortness of breath, chest x-ray suggestive of pneumonia and pleural effusion. He did go into atrial fibrillation, and this is new so put him on some Lopressor 50 mg a day. His rate seemed to be controlled, and he went back into sinus rhythm. Continue his anticoagulation, which he was getting for DVT. Echocardiogram showed preserved left ventricular function. He continued to improve. Dr. Bell was sending off for the studies of his thoracentesis a couple of years ago at [place], but he clinically was better, felt he could go home. We did not identify any organisms. Blood cultures x2 were negative from 07/14/2019 so plan to discharge him home. DISCHARGE MEDICATIONS: Will be to take Tylenol as needed. He takes Zyloprim 300 mg a day, Lipitor 20 mg at bedtime, Pulmicort 0.5 mg b.i.d., Celexa 20 mg a day. He is on Valium 3 mg a day, Proscar 5 mg a day, Flonase 1 puff each nostril daily, Lasix 40 mg a day, gabapentin 300 mg t.i.d., Amaryl 1 mg daily, Mucinex 1200 mg a day, Culturelle 1 a day, milk of magnesia if needed, Mag-Ox 400 mg a day, Glucophage 500 mg he takes p.o. 4 times a day, Lopressor 50 mg a day. I gave him a prescription for that. Multivitamin 1 a day, omeprazole 20 mg daily, MiraLAX 17 g a day, Aldactone 25 mg a day, Flomax 0.4 mg b.i.d., and Coumadin he continues 4 mg at bedtime. He will follow back with his primary care physician in a couple of weeks. I will discharge him on Levaquin, which he will take 750 mg once a day for another 7 days. cc: Alvarado Sheth MD
== END 2019-07-18 18:45 | disposition home or self-care (01) | DRG 194 ==
LOC: ED 10:13 → EDIPHOLD 15:32 → 3N 18:41
PROVIDERS: ATTEND Emergency Medicine

== ENCOUNTER 2019-09-04 10:02 | Inpatient (IN) ==
--- NOTE | 2019-09-04 10:37 | Diag Imaging Result Doc PS360 ---
CHEST-2 VIEWS - 09/04/2019 INDICATION: sob COMPARISON: 07/16/2019 FINDINGS: Lung volumes are severely low. There is significant cardiomegaly. Stable hazy interstitial infiltrates in the lung bases suggesting pulmonary edema. There are trace pleural effusions, right greater than left. IMPRESSION: Probable mild congestive heart failure. Electronically signed by Fan Hercules 09/04/2019 10:34 AM
--- NOTE | 2019-09-04 10:47 | EKG Report ---
Test Performed on : 09/04/2019 10:15:50 AM Test Reason : sob Blood Pressure : / mmHG Vent. Rate : 078 BPM Atrial Rate : 067 BPM P-R Int : 164 ms QRS Dur : 098 ms QT Int : 436 ms P-R-T Axes : 031 007 029 degrees QTc Int : 497 ms Sinus rhythm. with premature supraventricular complexes. and with occasional premature ventricular co mplexes. Nonspecific ST abnormality Prolonged QT Abnormal ECG When compared with ECG of 16-JUL-2019 06:44, premature ventricular complexes. are now present Unconfirmed Result
[2019-09-04] MEDS ORDERED: LASIX IV ONE (10:54)
--- NOTE | 2019-09-04 10:54 | PROVIDER DOCUMENTATION ---
This chart was entered by Esther Sanchez Scribe, acting as scribe for Mariana Wyatt MD. HPI-Respiratory General - General Chief Complaint: Shortness of Breath Stated Complaint: SOB Time Seen by Provider: 09/04/19 10:21 Source: patient Allergies/Adverse Reactions: Patient Allergies Allergy/AdvReac Type Severity Reaction Status Date / Time No Known Allergies Allergy Verified 09/04/19 10:44 Home Medications: Home Medication List Medication Instructions Recorded Confirmed Last Taken Type Acetaminophen with Codeine 1 ea PO TID PRN 07/14/19 09/04/19 Unknown History [Acetaminophen-Cod #3 Tablet] Allopurinol [Zyloprim] 300 mg PO DAILY 07/14/19 09/04/19 Unknown History Citalopram [Celexa] 20 mg PO DAILY 07/14/19 09/04/19 07/14/19 09:00 History Diazepam 2 mg PO QHS 07/14/19 09/04/19 07/13/19 21:00 History Finasteride [Proscar] 5 mg PO DAILY 07/14/19 09/04/19 07/14/19 08:00 History Fluticasone 50 Mcg Nasal [place] 1 spray INTRANASAL DAILY 07/14/19 09/04/19 07/14/19 08:00 History [Flonase] Furosemide [Lasix] 20 mg PO DAILY 07/14/19 09/04/19 07/14/19 08:00 History Gabapentin [Neurontin] 300 mg PO TID 07/14/19 09/04/19 07/14/19 08:00 History Glimepiride 1 mg PO WBREAKFAST 07/14/19 09/04/19 07/14/19 07:00 History LISINOpril [Prinivil] 20 mg PO DAILY 07/14/19 09/04/19 07/14/19 08:00 History Lactobacillus Rhamnosus GG 1 ea PO DAILY 07/14/19 09/04/19 07/14/19 08:00 History [Culturelle] Magnesium Oxide [Magnesium] 400 mg PO DAILY 07/14/19 09/04/19 07/14/19 08:00 History Multivitamins/Minerals [Centrum 1 ea PO DAILY 07/14/19 09/04/19 07/14/19 08:00 History Silver] Spironolactone 25 mg PO DAILY 07/14/19 09/04/19 07/14/19 08:00 History Tamsulosin [Flomax] 0.4 mg PO BID 07/14/19 09/04/19 07/14/19 08:00 History Warfarin [Coumadin] 4 mg PO QHS 07/14/19 09/04/19 07/13/19 21:00 History ATORVAstatin [Lipitor] 20 mg PO HS tab 07/18/19 09/04/19 Unknown Rx Acetaminophen [Tylenol] 650 mg PO Q4H PRN PRN tab 07/18/19 09/04/19 Unknown Rx Metformin [Glucophage] 500 mg PO 4XDAY tab 07/18/19 09/04/19 Unknown Rx Metoprolol [Lopressor] 50 mg PO DAILY 30 Days #30 tab 07/18/19 09/04/19 Unknown Rx Omeprazole [Prilosec] 20 mg PO DAILY@0700 cap 07/18/19 09/04/19 Unknown Rx Warfarin [Coumadin] 0.5 mg PO DIRECTED 09/04/19 09/04/19 Unknown History - History of Present Illness-Resp Nature of Presenting Problem: 79 y/o male with history of DVT presents to the ED with complaint of SOB worsening with laying flat and dull constant chest pain as well as epigastric abdominal pain. He states he is having to sit up in recliner and this is easier for him to breath with. The patient states he is on diuretic 20 mg daily and has not missed any doses. The patient states he sees Dr. Lincoln. Quality of Pain: reports: dull Onset/Duration: reports: unsure Timing: reports: still present Episode Frequency: chronic episodes Current Respiratory Medication Therapy: Initiated see nurses note Modifying Factors: improves with: sitting upright. worse with: lying down Associated Symptoms: reports: shortness of breath. denies: sweaty Similar Symptoms Previously?: Yes Recently seen or treated by another doctor?: No Review of Systems - Adult - REVIEW OF SYSTEMS - ADULT Constitutional: denies: chills, fever, night sweats Eyes: reports: no symptoms reported Ears, Nose, Mouth & Throat: reports: no symptoms reported Cardiovascular: reports: chest pain (dull). denies: palpitations, syncope Respiratory: reports: shortness of breath. denies: hemoptysis, wheezing Gastrointestinal: reports: abdominal pain (epigastric). denies: diarrhea, vomiting Genitourinary: reports: no symptoms reported Musculoskeletal: reports: no symptoms reported Integumentary: reports: no symptoms reported Neurological: reports: no symptoms reported Psychiatric: reports: no symptoms reported Endocrine: reports: no symptoms reported Hematologic/Lymphatic: reports: no symptoms reported Allergic/Immunologic: reports: no symptoms reported All Other Systems: Reviewed and Negative Past History - Adult - PAST MEDICAL HISTORY-ADULT Review of Records: reports: Old Records Reviewed, Nursing Assessment Review, Medications Reviewed Major Childhood Illnesses: reports: denies history Cardiovascular: reports: blood clots (DVT in LLE), HTN, hyperlipidemia Respiratory: reports: asthma Gastrointestinal: reports: denies history Obstetrical/Gynecological: reports: denies history Genitourinary: reports: denies history Musculoskeletal: reports: denies history Neurological: reports: CVA Psychiatric: reports: denies history Endocrine/Immune: reports: Diabetes Other Conditions: reports: denies history - PRIOR SURGERIES/PROCEDURES Surgical/Procedure History: reports: recent surgery (carotid sx 2 weeks prior), cholecystectomy, hernia repair - IMMUNIZATION STATUS Childhood Immunizations: See Nurse Assessment Flu Vaccine: See Nurse Assessment - FAMILY HISTORY Family History: reviewed, not pertinent - SOCIAL HISTORY Smoking: non-smoker Living Situation: family Physical Exam-General - PHYSICAL EXAM-ADULT Initial Vital Signs Reviewed: Yes - CONSTITUTIONAL General Appearance: alert, mild distress, obese - EYES Eyes: PERRL/EOMI - HEAD, EARS, NOSE, MOUTH & THROAT HENMT: normocephalic/atraumatic, moist mucous membranes - NECK Neck: full range of motion, supple - RESPIRATORY Respiratory: no respiratory distress, no accessory muscle use, crackles (bilateral bases). negative: rales, rhonchi, wheezing - CARDIOVASCULAR Cardiovascular: regular rate, rhythm, no gallop, no murmur, other (1+ bilateral pitting edema) - GASTROINTESTINAL (ABDOMEN) Abdominal Exam: normal bowel sounds, non tender, soft. negative: distended - MUSCULOSKELETAL Extremity: normal range of motion, non-tender, pedal edema (1+bilateral pitting) - SKIN Integumentary: normal color, warm/dry. negative: diaphoresis - NEUROLOGIC Neurologic: grossly normal - PSYCHIATRIC Psych/Mental Status: normal mood/affect, oriented x 3 - HEART Score HEART Score: History: Slightly Suspicious HEART Score: ECG: Non-Specific Repolarization Disturbance/LBBB/PM HEART Score: Age: > or = 65 Years HEART Score: Risk Factors for Atherosclerotic Disease: 1 or 2 Risk Factors HEART Score: Troponin: < or = Normal Limit Total HEART Score:: 4 Progress - PLAN OF CARE/RESULTS Progress/Plan/Lab Results: Vital Signs - 8 hr 09/04/19 10:08 09/04/19 10:21 09/04/19 10:32 Temperature 97.7 F Pulse Rate 68 63 63 Respiratory Rate 20 15 Blood Pressure 154/74 161/77 O2 Sat by Pulse Oximetry 92 L 93 L 94 L 09/04/19 10:34 09/04/19 10:45 09/04/19 11:00 Temperature Pulse Rate 67 71 61 Respiratory Rate 5 L Blood Pressure 168/76 O2 Sat by Pulse Oximetry 89 L 86 L 95 09/04/19 11:03 09/04/19 11:11 Temperature Pulse Rate 59 L Respiratory Rate 10 L Blood Pressure 158/69 O2 Sat by Pulse Oximetry 95 96 Laboratory Results - last 24 hr 09/04/19 09/04/19 09/04/19 10:43 10:43 10:43 WBC 5.66 RBC 3.43 L Hgb 10.8 L Hct 34.6 L MCV 100.9 H MCH 31.5 H MCHC 31.2 L RDW Std Deviation 14.2 Plt Count 225 MPV 9.9 Immature Gran % (Auto) 0.4 Neut % (Auto) 66.4 Lymph % (Auto) 21.0 Sibley % (Auto) 9.9 H Eos % (Auto) 2.1 Baso % (Auto) 0.2 Immature Gran # (Auto) 0.02 Neut # (Auto) 3.76 Lymph # (Auto) 1.19 L Sibley # (Auto) 0.56 Eos # (Auto) 0.12 Baso # (Auto) 0.01 PT INR PTT (Actin FS) Sodium 142 Potassium 4.1 Chloride 102 Carbon Dioxide 25 Anion Gap 15 BUN 16 Creatinine 0.8 Estimated GFR/1.73 m2 > 60 BUN/Creatinine Ratio 20 Glucose 138 H Calculated Osmolality 287 Calcium 8.6 L Total Bilirubin 0.37 AST 19 ALT 17 Alkaline Phosphatase 70 Creatine Kinase 39 Troponin T [id number] Pept 4464 H Total Protein 6.0 L Albumin 3.5 Globulin 2.5 Albumin/Globulin Ratio 1.4 09/04/19 09/04/19 10:43 10:43 WBC RBC Hgb Hct MCV MCH MCHC RDW Std Deviation Plt Count MPV Immature Gran % (Auto) Neut % (Auto) Lymph % (Auto) Sibley % (Auto) Eos % (Auto) Baso % (Auto) Immature Gran # (Auto) Neut # (Auto) Lymph # (Auto) Sibley # (Auto) Eos # (Auto) Baso # (Auto) PT 20.8 H INR 1.75 PTT (Actin FS) 35.2 Sodium Potassium Chloride Carbon Dioxide Anion Gap BUN Creatinine Estimated GFR/1.73 m2 BUN/Creatinine Ratio Glucose Calculated Osmolality Calcium Total Bilirubin AST ALT Alkaline Phosphatase Creatine Kinase Troponin T < 0.010 [id number] Pept Total Protein Albumin Globulin Albumin/Globulin Ratio Orders Category Date Time Status Cardiac Monitoring DIRECTED Care 09/04/19 10:11 Active Oxygen Therapy- ED Nursing DIRECTED Care 09/04/19 10:11 Active Saline Loc NOW Care 09/04/19 10:11 Active CHEST-2 VIEWS [RAD] Stat Exams 09/04/19 10:11 Completed CBC WITH ELECTRONIC DIFF [HEME] Stat Lab 09/04/19 10:43 Completed CK PROFILE [SP CHEM] Stat Lab 09/04/19 10:43 Completed COMPREHENSIVE METABOLIC PANEL [CHEM] Stat Lab 09/04/19 10:43 Completed PRO B-NATRIURETIC PEPTIDE Stat Lab 09/04/19 10:43 Completed PROTIME WITH INR [COAG] Stat Lab 09/04/19 10:43 Completed PTT [COAG] Stat Lab 09/04/19 10:43 Completed TROPONIN T Stat Lab 09/04/19 10:43 Completed Furosemide [Lasix] Med 09/04/19 10:54 Discontinued 40 mg IV NOW ONE CP/SOB/Palp >45 yrs of Age Stat Oth 09/04/19 10:11 Ordered EKG [EKG] Stat Ther 09/04/19 10:11 Draft Patient with BNP to 4500 and CXR showing only mild CHF. However, patient with SP O2 89% on room air without exertion and takes no O2 at homes. Needs to come in at least for OBS for diuresis. He was given Lasix 40mg IV and has urinated out 1400cc while in the ED. Spoke to OWEN Parker for hospitalist who accepted patient for admission. Further orders to be placed by their team. Result Diagrams: 09/04/19 10:43 09/04/19 10:43 - REASSESSMENT Reassessment #1 Time Reassessed: 12:22 Status: other (O2 sat dropped to 89 percent with the patient at rest w/o oxygen) Reassessment Comment: physician at bedside - EKG 1 Time of EKG reading by physician:: 10:17 EKG Read and Signed by:: Mariana Wyatt EKG Interpretation (*Must complete 3 of following elements*): Normal Rate: 78 Rhythm: NSR QRS: PVC's VA Interval: normal Prior EKG Comparison: unchanged from prior - XRAY 1 XRAY Study: Chest (CHEST-2 VIEWS - 09/04/2019 INDICATION: sob COMPARISON: 07/16/2019 FINDINGS: Lung volumes are severely low. There is significant cardiomegaly. Stable hazy interstitial infiltrates in the lung bases suggesting pulmonary edema. There are trace pleural effusions, right greater than left. IMPRESSION: Probable mild congestive heart failure. Electronically signed by Fan Hercules 09/04/2019 10:34 AM) Departure - Departure Date of Disposition Decision: 09/04/19 Time of Disposition Decision: 12:41 DIAGNOSIS: CHF (congestive heart failure), Hypoxemia Disposition: ADMITTED INPATIENT 09 Certified Medical Emergency: Emergent Condition: Stable Referrals and Follow-Ups: Sasha Lincoln MD [Primary Care Provider] - - Critical Care Note This patient required my direct & personal management of CC.: No Attestation - Physician/ DANELLE Attestation Patient care was provided by Advanced Practice Provider:: No The physician spent face to face time with patient:: Yes Advanced Practice Provider documentation review:: Supervising physician onsite and consulted in the evaluation and care of this patient. The physician did have a face to face encounter with the patient. This chart was documented by the indicated scribe, (Esther Sanchez, Leigh Ann) and accurately reflects the services I performed and decisions made by me, Mariana Wyatt MD, as attested by the provider's signature.
[2019-09-04 10:59] LABS: BASO# 0.01 X1000 (0.0-0.2); BASO% 0.2 % (0.0-0.8); EOS# 0.12 X1000 (0.0-0.7); EOS% 2.1 % (0.0-10.0); HEMATOCRIT 34.6 % (42.0-52.0); HEMOGLOBIN 10.8 g/dL (14.0-18.0); IMM GRAN# 0.02 X1000 (0.0-0.04); IMM GRAN% 0.4 % (0.0-0.5); LYMPH# 1.19 X1000 (1.2-3.4); MCH 31.5 PG (27-31); MCHC 31.2 g/dL (33-37); MCV 100.9 FL (81-99); MONO# 0.56 X1000 (0.11-0.59); MONO% 9.9 % (1.7-9.3); MPV 9.9 FL (7.4-10.4); NEUT# 3.76 X1000 (1.4-6.5); NEUT% 66.4 % (42.2-75.2); PLT 225 X1000 (130-400); RBC 3.43 XMIL (4.7-6.1); RDW 14.2 % (11.5-14.5); WBC 5.66 X1000 (4.8-10.8)
[2019-09-04 11:10] LABS: INR 1.75; PROTIME 20.8 Seconds (11.0-16.0)
[2019-09-04 11:11] LABS: PTT 35.2 Seconds (22.3-41.8)
[2019-09-04 11:32] LABS: AGAP 15; ALB/GLOB RATIO 1.4; ALBUMIN 3.5 g/dL (3.5-5.0); ALKALINE PHOSPHATASE 70 U/L (32-122); BUN 16 mg/dL (8-22); CALCIUM 8.6 mg/dL (8.8-10.2); CHLORIDE 102 mmol/L (98-107); CK PROFILE 39 U/L (24-204); COSMO 287; CREATININE 0.8 mg/dL (0.7-1.2); ESTIMATED GFR > 60; GLUCOSE 138 mg/dL (70-104); GOT 19 U/L (10-34); GPT 17 U/L (10-44); POTASSIUM 4.1 mmol/L (3.5-5.1); SODIUM 142 mmol/L (136-145); TCO2 25 mmol/L (25-35); TOTAL BILIRUBIN 0.37 mg/dL (0.20-1.00)
--- NOTE | 2019-09-04 16:13 | HISTORY AND PHYSICAL ---
CHIEF COMPLAINT: Shortness of breath. Patient's primary care physician is Dr. Lincoln. HISTORY OF PRESENT ILLNESS: This is a very pleasant 79-year-old gentleman with a history of diabetes mellitus, prior CVA, obstructive sleep apnea, morbid obesity, who presents to the emergency room complaining of increasing shortness of breath over the last 3 to 4 days. He has had about 90 degree orthopnea that has progressed to about 90 degree orthopnea requiring him to set and sleep in a recliner to breathe over the past 2 to 3 days. He has complained of some dull chest pain and epigastric pain. He describes this as the feeling of needing to take a deep breath. He denies any palpitations, any fevers, chills. He does report feeling that he has had abdominal fullness and increase in his abdominal girth. He does not weigh daily. He does report eating a lot of salty foods and not staying with diet over the holidays. His chest x-ray revealed mild congestive heart failure and he was noted to have a proBNP of 4464, which is close to where it has been the last 6 weeks. PAST MEDICAL HISTORY: 1. History of CVA status post left carotid endarterectomy. 2. Kidney stones. 3. Gastroesophageal reflux disease and hiatal hernia. 4. Hypertension. 5. Hypercholesterolemia. 6. Obstructive sleep apnea. 7. Diabetes mellitus type 2. 8. Asthma, chronic bronchitis. 9. Peptic ulcer disease. 10. Restless legs syndrome. 11. Benign prostatic hypertrophy. 12. History of DVTs on Coumadin. 13. Chronic back pain. 14. Morbid obesity. 15. Peripheral artery disease. PAST SURGICAL HISTORY: 1. Left carotid endarterectomy. 2. Prostate surgery. 3. Hernia repair. 4. Tonsillectomy . ALLERGIES: No known drug allergies. HOME MEDICATIONS: A list will be obtained by the nursing staff and once verified will review and restart as appropriate. FAMILY HISTORY: Father had narcolepsy as well as heart disease. Grandparents had hypertension and diabetes. REVIEW OF SYSTEMS: Discussed with the patient with pertinent positives stated in the HPI. He denied any syncope or dizziness, any palpitations, any fevers or chills, a productive cough, any nausea, vomiting, diarrhea, constipation, black or bloody vomitus or stools, any hematuria, dysuria, dysuria, frequency, urgency. PHYSICAL EXAMINATION: GENERAL: This is an 79-year-old gentleman who is sitting up on the stretcher in the emergency room in no distress. VITAL SIGNS: Blood pressure is 158/69 with a heart rate of 60, respirations are 18, temperature is 97.7 degrees with O2 saturations room air were 86 and are 95 to 97 percent on 3 L nasal cannula. HEENT: Head is normocephalic, atraumatic. Mucous membranes are moist. NECK: Supple with trachea midline. CARDIOVASCULAR: Regular rate and rhythm. S1 and S2 appreciated. He has bilateral lower extremity edema with left greater than right. Left is chronic. Calves are nontender bilateral. PULMONARY: He does have some bibasilar crackles. Chest rises and falls symmetric with respiration. Chest wall is nontender to palpation. GASTROINTESTINAL: Abdomen is large, soft, nontender, nondistended with bowel sounds in all 4 quadrants. GENITOURINARY: No CVA or suprapubic tenderness. NEUROLOGIC: He is alert and oriented x3. SKIN: Warm and dry. LABS: WBC is 5.6 with hemoglobin 10.8, hematocrit 34.6 and platelets of 225,000. Sodium 142, potassium 4.1, BUN 16, creatinine 0.8, glucose of 138. ProBNP is 4464. Chest x-ray revealed probable mild congestive heart failure. ASSESSMENT AND PLAN: 1. Congestive heart failure exacerbation. 2. Acute hypoxemic respiratory failure. 3. Diabetes mellitus type 2. 4. Gastroesophageal reflux disease. 5. Restless legs syndrome. 6. History of deep vein thrombosis on chronic anticoagulation. 7. History of asthma, chronic bronchitis, aware. 8. Chronic back pain with chronic narcotics. PLAN: The patient will be admitted to the medical floor and placed on telemetry. We will continue with supplemental oxygen, strict I and O and daily weights. Will identify his home medications and continue as appropriate. We will check a CBC, BMP, magnesium and daily PT/INR. We will check a PA and lateral chest x-ray in the morning. Give Lasix 40 mg IV q.12 hours, pattern blood glucose with sliding scale insulin. We will continue his Tylenol #3. His INR is 1.75 with a target of 2 to 3. Will give 4 mg tonight checking INR in the morning. For DVT prophylaxis of course will continue Coumadin and GI prophylaxis Prilosec. Further treatments pending hospital course. Plan was discussed with Dr. Hernandes. Dictated by GIANLUCA Guy for Brendan Mendoza MD . Addendum: Patient seen and examined by myself. Agree with GIANLUCA note. It reflects my assessment and plan. Patient is being admitted to hospital for CHF exacerbation. Will start Lasix 40 mg IV q12 hours and restart rest of home medications. Will monitor patient closely. cc: GIANLUCA Guy MD [facility]
[2019-09-04] MEDS: HUMALOG SUBQ SCH ×2 (19:33→21:21)
[2019-09-04] MEDS: LASIX IV SCH (21:19)
[2019-09-05] MEDS: HUMALOG SUBQ SCH ×3 (06:15→16:57)
[2019-09-05 07:34] LABS: BASO# 0.01 X1000 (0.0-0.2); BASO% 0.2 % (0.0-0.8); EOS# 0.17 X1000 (0.0-0.7); EOS% 2.8 % (0.0-10.0); HEMATOCRIT 35.3 % (42.0-52.0); HEMOGLOBIN 11.1 g/dL (14.0-18.0); LYMPH# 1.19 X1000 (1.2-3.4); LYMPH% 19.5 % (20.5-51.1); MCH 31.7 PG (27-31); MCHC 31.4 g/dL (33-37); MCV 100.9 FL (81-99); MONO# 0.56 X1000 (0.11-0.59); MONO% 9.2 % (1.7-9.3); MPV 9.9 FL (7.4-10.4); NEUT# 4.17 X1000 (1.4-6.5); NEUT% 68.3 % (42.2-75.2); PLT 218 X1000 (130-400); RDW 14.1 % (11.5-14.5)
[2019-09-05 07:47] LABS: INR 1.57
[2019-09-05 07:53] LABS: AGAP 14; BUN 20 mg/dL (8-22); CALCIUM 8.5 mg/dL (8.8-10.2); CHLORIDE 98 mmol/L (98-107); COSMO 290; ESTIMATED GFR > 60; GLUCOSE 147 mg/dL (70-104); MAGNESIUM 1.2 mg/dL (1.5-2.7); POTASSIUM 3.5 mmol/L (3.5-5.1); SODIUM 143 mmol/L (136-145); TCO2 31 mmol/L (25-35)
--- NOTE | 2019-09-05 09:44 | Diag Imaging Result Doc PS360 ---
EXAM: CHEST-2 VIEWS 09/05/2019 HISTORY: dyspnea TECHNIQUE: PA and lateral chest COMMENT: There is blunting of the right costophrenic angle. Compared to 09/04/2019 the lungs are slightly better expanded. There continues to be some basilar opacity particularly in the right middle and lower lobes. There is also some pleural thickening or small amounts of pleural fluid on the left at the costophrenic sulcus. IMPRESSION: Bilateral pleural effusions more so on the right than the left. Atelectasis versus pneumonia right middle and lower lobes. Electronically signed by Sarbjit Rogers 09/05/2019 9:42 AM
[2019-09-05] MEDS: LASIX IV SCH ×3 (10:34→22:03)
[2019-09-05] MEDS ORDERED: MAGNESIUM SULFATE 2 GM/S.W.I. 2 GM/50 ML IVPB IV ONE (10:45)
--- NOTE | 2019-09-05 13:04 | PROGRESS NOTE ---
DATE: 09/05/2019 SUBJECTIVE: The patient reports feeling better today, breathing okay. He is requiring oxygen at 2 L by nasal cannula. OBJECTIVE: Vital Signs: Temperature 98.2 degrees, heart rate 59, respiratory rate 20, blood pressure 125/97, O2 saturation 98% on 2 L nasal cannula. General Examination: This is an 79-year- old, male, lying in bed, in no acute distress. Cardiovascular Examination: S1 and S2 heard. No murmurs, gallops, or rubs. Regular rate and rhythm. Respiratory Examination: Bibasilar crackles noted. The patient is not having any work of breathing. Abdomen: Soft, nontender to palpation. Bowel sounds present. No organomegaly. Extremities: No clubbing, cyanosis, or edema. Peripheral pulses present in both legs. Neurological Examination: The patient is alert and oriented x3. Moves 4 extremities. Laboratory Data: Reviewed. ASSESSMENT AND PLAN: 1. Congestive heart failure exacerbation. Apparently, the reason was dietary indiscretion so at this point, we will continue with Lasix 40 mg intravenous every 12 hours. We will check an x- ray tomorrow, PA and lateral. If pulmonary edema is better, we will let him go. 2. Acute hypoxemic respiratory failure secondary to condition #1. We will continue with 2 L of oxygen by nasal cannula. We will continue to monitor. 3. Diabetes mellitus type 2. We will continue with sliding scale insulin. Accu-Chek before meals and also at bedtime. 4. Gastroesophageal reflux disease. We will continue with Protonix. 5. Restless legs syndrome. Aware. We will continue home medications. 6. Chronic back pain with chronic narcotics. We will restart home medications. cc: Brendan Mendoza MD
[2019-09-05] MEDS ORDERED: LIPITOR PO SCH (21:00)
[2019-09-05] MEDS ORDERED: VALIUM PO SCH (21:00)
[2019-09-05] MEDS: FLOMAX PO SCH (22:03)
[2019-09-06] MEDS: HUMALOG SUBQ SCH ×3 (00:29→12:22)
[2019-09-06] MEDS ORDERED: PRILOSEC PO SCH (07:00)
[2019-09-06 07:47] LABS: INR 1.23; PROTIME 15.7 Seconds (11.0-16.0)
[2019-09-06 08:05] LABS: AGAP 12; ALBUMIN 3.7 g/dL (3.5-5.0); BUN 21 mg/dL (8-22); CHLORIDE 94 mmol/L (98-107); COSMO 284; ESTIMATED GFR > 60; GLUCOSE 154 mg/dL (70-104); MAGNESIUM 1.7 mg/dL (1.5-2.7); PHOSPHORUS 3.9 mg/dL (2.7-4.5); POTASSIUM 3.8 mmol/L (3.5-5.1); SODIUM 139 mmol/L (136-145); TCO2 33 mmol/L (25-35)
[2019-09-06] MEDS ORDERED: PRINIVIL PO SCH (09:00)
[2019-09-06] MEDS ORDERED: CELEXA PO SCH (09:00)
[2019-09-06] MEDS ORDERED: ZYLOPRIM PO SCH (09:00)
[2019-09-06] MEDS ORDERED: ALDACTONE PO SCH (09:00)
[2019-09-06] MEDS ORDERED: CENTRUM SILVER PO SCH (09:00)
[2019-09-06] MEDS ORDERED: LOPRESSOR PO SCH (09:00)
[2019-09-06] MEDS ORDERED: PROSCAR PO SCH (09:00)
[2019-09-06] MEDS: LASIX IV SCH (09:51)
--- NOTE | 2019-09-06 09:51 | Diag Imaging Result Doc PS360 ---
EXAM: CHEST-2 VIEWS HISTORY: pulmonary edema TECHNIQUE: Two views COMPARISON: 09/05/2019 FINDINGS: Poor inspiratory effort. Small right pleural effusion similar to the prior exam. Cardiomegaly remains. No pulmonary edema. Atelectasis and/or infiltrates in the right base are slightly less pronounced. IMPRESSION: Mild interval improvement. Electronically signed by Ralph Warren 09/06/2019 9:48 AM
[2019-09-06] MEDS: FLOMAX PO SCH (09:52)
[2019-09-06 11:49] VITALS: BP 114/64
--- NOTE | 2019-09-06 16:59 | DISCHARGE SUMMARY ---
ADMISSION DATE: 09/04/2019 DISCHARGE DATE: 09/06/2019 DISCHARGE DIAGNOSES: 1. CHF exacerbation most likely related to dietary indiscretion, improved. 2. Acute hypoxemic respiratory failure. 3. Community-acquired pneumonia. 4. Diabetes mellitus type 2. 5. Gastroesophageal reflux disease. 6. Restless legs syndrome. 7. History DVT, on chronic anticoagulation. 8. Chronic back pain. PROCEDURES: Chest x-ray done on admission showed possible mild congestive heart failure. Chest x-ray done on discharge showed mild interval improvement with atelectasis or infiltrate in the right base is slightly less pronounced. HOSPITAL COURSE: Mr. Munoz is an 79-year-old male with a past medical history of diabetes, prior CVA, obstructive sleep apnea and morbid obesity, who presented to the emergency department complaining of increased shortness of breath during the last 3 to 4 days, orthopnea and he needed to sleep in a recliner. He was admitted for CHF exacerbation. ProBNP was found to be elevated. He was started on Lasix 40 mg IV every 12 hours. On discharge patient reports feeling much better, not requiring any oxygen supplementation. Because of suspicion for possible superimposed infection we will provide also prescription for antibiotics. The patient is going to be discharged in stable condition. DISCHARGE PHYSICAL EXAMINATION: Vitals: Temperature 98 degrees, heart rate 70, respiratory 16, blood pressure 123/80, O2 saturation 96% on room air. General Examination: This is an 79-year- old male, lying in bed, in no acute distress. Cardiovascular: S1, S2 heard. No murmurs, gallops, or rubs. Regular rate and rhythm. Respiratory: Minimal crackles noted in both pulmonary bases. Patient not using any accessory muscles or having work of breathing. Abdomen: Soft. Nontender to palpation. Bowel sounds present. No organomegaly. Extremities: No clubbing, cyanosis or edema. Peripheral pulses present in both legs. Neurological: The patient is alert and oriented x3. Moves all 4 extremities. DISCHARGE DISPOSITION: 1. Home to self-care. DISCHARGE MEDICATIONS: 1. Furosemide 40 mg 1 tablet p.o. daily. 2. Cefdinir 300 mg 1 tablet p.o. b.i.d. for a week. 3. Albuterol 300 mg 1 tablet p.o. daily. 4. Citalopram 20 mg 1 tablet p.o. daily. 5. Diazepam 10 mg, 1 tablet p.o. at bedtime. 6. Finasteride 5 mg 1 tablet p.o. daily. 7. Flonase 1 spray intranasally daily. 8. Gabapentin 300 mg 1 tablet p.o. 3 times per day. 9. Glimepiride 1 mg 1 tablet p.o. with breakfast. 10. Lisinopril 20 mg 1 tablet p.o. daily. 11. Multivitamins 1 tablet p.o. daily. 12. Spironolactone 25 mg 1 tablet p.o. daily. 13. Tamsulosin 0.4 mg 1 tablet p.o. b.i.d. 14. Warfarin 4 mg 1 tablet p.o. at bedtime. 15. Magnesium 400 mg 1 tablet p.o. daily. 16. Metformin 500 mg 1 tablet p.o. 4 times per day. 17. Metoprolol 50 mg 1 tablet p.o. daily. 18. Omeprazole 20 mg 1 tablet p.o. daily. 19. Lipitor 20 mg 1 tablet p.o. at bedtime. cc: Brendan Mendoza MD MTDD
== END 2019-09-06 13:46 | disposition home or self-care (01) ==
LOC: ED 10:02 → 3N 17:50
PROVIDERS: ATTEND Internal Medicine